=== PATIENT | male | born 1965 | race Caucasian/White ===

== ENCOUNTER 2017-05-01 08:17 | Day surgery (SDC) | payer BC ==
[~2017-05-01 08:17] MED LIST: Lactated Ringers 1,000 ML IV SCH
[2017-05-01] MEDS ORDERED: Propofol 200 MG/20 ML SDV ONE ×2 (11:17→11:32)
[2017-05-01] MEDS ORDERED: fentaNYL 100 MCG/2 ML SDV ONE (11:17)
--- NOTE | 2017-05-01 17:29 | OR ---
PREOPERATIVE DIAGNOSIS: Significant constipation. POSTOPERATIVE DIAGNOSIS: Moderate sigmoid diverticulosis, otherwise, normal exam. PROCEDURE PROPOSED AND PROCEDURE DONE: Total flexible colonoscopy with multiple random biopsies. INDICATIONS: This is a 52-year-old gentleman with an increasingly problematic constipation issue. He is now taking up to 6 laxative tablets per day as well as MiraLAX, and it is felt that his colon should be evaluated and samples taken to hopefully determine the etiology of his problem. TECHNIQUE: The patient was brought to the endoscopy suite, placed in the left lateral decubitus position. He was sedated per TRANSPORTATION ASSISTANT with propofol. The flexible video colonoscope was then passed transanally and under visualization advanced to the cecum. The cecum, transverse and descending colon appeared unremarkable. Multiple random biopsies were taken from all levels of the colon. The sigmoid colon revealed moderate diverticulosis, and the rectum was normal, and biopsies were also taken from the left colon. A total of 12 biopsies were taken and submitted for pathologic examination. He tolerated the procedure well. There was no physical abnormality to account for his constipation. IMPRESSION: 1. Moderate sigmoid diverticulosis, otherwise, normal exam. 2. Functional constipation, etiology uncertain. PLAN: The biopsies are pending. He should continue with his present regimen and follow up with Dr. Todd as needed. He may need a possible GI referral if his condition continues to worsen. SCM: 05/01/2017 11:46:25 MODL: 05/01/2017 17:23:06 /[id number]
--- NOTE | 2017-05-08 09:39 | LETTER ---
05/08/2017 Jhonny Das RE: JHONNY DAS : 1965 Dear Jhonny, The random biopsies taken from your colon revealed no evidence of any colitis. This would indicate that you basically have more of a functional problem rather than a pathologic abnormality of your colon. I am hoping that the regimen suggested is providing some relief. If you continue to have issues, I feel you should consult with your family physician. Respectfully,
== END 2017-05-01 13:01 | disposition home or self-care (01) ==
LOC: VM.SDS 08:17
PROVIDERS: ATTEND Surgery
DX: K57.30 Diverticulosis of large intestine without perforation or abscess without bleeding (principal); K63.89 Other specified diseases of intestine; I10 Essential (primary) hypertension; E66.9 Obesity, unspecified; E78.1 Pure hyperglyceridemia; Z79.899 Other long term (current) drug therapy; Z68.35 Body mass index [BMI] 35.0-35.9, adult
CPT/HCPCS: 45380; J2704; J3010; J7120